=== PATIENT | female | born 1995 | race Caucasian/White ===

== ENCOUNTER 2021-06-12 09:00 | Inpatient (IN) | payer OTHER ==
[~2021-06-12] VITALS: Ht 177.8 cm; Wt 93.4 kg
[~2021-06-12 09:00] MED LIST: OMEPRAZOLE20 MG PO; ONDANSETRON ODT8 MG PO; REGLAN10 MG PO
--- NOTE | 2021-06-12 09:45 | NUR ---
COVID SWAB COLLECTED SENT TO IN-HOUSE LAB
--- NOTE | 2021-06-12 14:44 | PR ---
[facility] [address] [facility] [place], [place] [address] Signed Progress Notes IP Datetime Report Generated by CPN: 06/12/2021 14:44 PROGRESS NOTES: [id number] Impression: Reassuring Heart Rate Procedures: Artificial ROM VITAL SIGNS: [id number] Vital Signs: Reviewed EXAM: [id number] Dilatation: 3.0 Effacement: 80 Station: -3 Contractions: rare, irregular MEMBRANES: [id number] Comments: EIOL: s/p cytotec x 1 AROM - moderate clear fluid Recheck in 2 hours unless contractions become regular and more painful prior FETUS A: [id number] FHR Baseline: 135 Variability: Moderate 6-25bpm Accelerations: 15X15 Decelerations: None FHR Category: Category I Comments on Fetus A: No evidence of acidemia FETUS B: [id number] Signing Physician: Alex Valentin DO Copies: ~ *Electronically Signed* 06/12/21 1444 ALEX VALENTIN DO PATIENT NAME: VADIM MATAMOROS PROGRESS NOTE DATE OF : [birth year] PHYSICIAN: ALEX VALENTIN DO [facility] #: [id number] REPORT IS CONFIDENTIAL AND NOT TO BE RELEASED WITHOUT AUTHORIZATION
--- NOTE | 2021-06-13 08:44 | PR ---
[facility] [address] [facility] [place], [place] [address] Signed PP Progress Notes Datetime Report Generated by CPN: 06/13/2021 08:44 SUBJECTIVE: [id number] Pain: Within Normal Limits Nausea/Vomiting: Denies Vital Signs: [id number] Vital Signs: Reviewed; Within Normal Limits Cardiovascular: Normal Respiratory: Normal Abdomen/Uterus: Normal Lochia: Normal Extremities: Normal Progress: Normal IMPRESSION/PLAN/PROCEDURES: [id number] Impression: Normal Progression Plan: Continue Present Management Progress Notes: PPD#1 s/p , second degree perineal laceration -progressing well , pain well-controlled with motrin/ tylenol -lochia moderate -clifton in place still, anticipate removal and voiding trial -ambulating without difficulty Rh negative, baby blood type A neg Mild anemia, discussed iron supplementation po after bowel movements resume Anticipate DC to home tomorrow (PPD#2) Signing Physician: Alex Valentin DO Copies: ~ *Electronically Signed* 06/13/21 0844 ALEX VALENTIN DO PATIENT NAME: VADIM MATAMOROS PROGRESS NOTE DATE OF : [birth year] PHYSICIAN: ALEX VALENTIN DO RPT #: [id number] REPORT IS CONFIDENTIAL AND NOT TO BE RELEASED WITHOUT AUTHORIZATION
--- NOTE | 2021-06-14 09:34 | PR ---
[facility] [address] [place], [place] [address] Signed PP Progress Notes Datetime Report Generated by CPN: 06/14/2021 09:34 SUBJECTIVE: [id number] Pain: Within Normal Limits Nausea/Vomiting: Denies Flatus: Yes Bowel Movement: Yes Vital Signs: [id number] Vital Signs: Reviewed; Within Normal Limits Cardiovascular: Normal Respiratory: Normal Abdomen/Uterus: Normal Lochia: Normal Breasts: Normal Extremities: Normal Progress: Normal Exam Comments: NAD sitting in bed holding baby RRR No dyspnea/ retractions Abd SNTND, FFBU Ext: 1+ BLLE pitting edema, Neg Tata's BL IMPRESSION/PLAN/PROCEDURES: [id number] Impression: Normal Progression Plan: Continue Present Management; Discharge Progress Notes: PPD#2 s/p -Rh negative: baby also Rh negative -Acute blood loss anemia: Rx for oral iron provided, discussed, asymptomatic -Undecided re: method of contraception -2nd degree pernial laceration Anticipate DC to home today Outpatient follow-up: 2 weeks telemedicine, 6 weeks in office (sooner if needed) Signing Physician: Alex Valentin DO Copies: ~ *Electronically Signed* 06/14/2134 ALEX VALENTIN DO PATIENT NAME: VADIM MATAMOROS PROGRESS NOTE DATE OF : [birth year] PHYSICIAN: ALEX VALENTIN DO RPT #: [id number] REPORT IS CONFIDENTIAL AND NOT TO BE RELEASED WITHOUT AUTHORIZATION
== END 2021-06-14 12:00 | disposition home or self-care (01) | DRG 806 ==
LOC: FBC 09:00
PROVIDERS: ADMIT Obstetrics & Gynecology; ATTEND Obstetrics & Gynecology
PROC: 10E0XZZ Delivery of Products of Conception, External Approach (ICD-10-PCS; principal; 2021-06-12)
PROC: 10907ZC Drainage of Amniotic Fluid, Therapeutic from Products of Conception, Via Natural or Artificial Opening (ICD-10-PCS; 2021-06-12)
DX: O70.1 Second degree perineal laceration during delivery (principal); D62 Acute posthemorrhagic anemia; Z37.0 Single live birth; Z3A.39 39 weeks gestation of pregnancy; O90.81 Anemia of the puerperium
CPT/HCPCS: 01960; 36415; 83030; 85027; 86850; 86900; 86901; A9270; C9803; J2590; J2790; J2795; U0003

== ENCOUNTER 2024-12-28 08:34 | Inpatient (IN) | payer OTHER ==
[~2024-12-28] VITALS: Ht 177.8 cm; Wt 95.3 kg
[2024-12-28] MEDS ORDERED: LIDOCAINE HCL 1% 30 ML SDV INJ PRN (09:00)
[2024-12-28] MEDS ORDERED: OXYTOCIN/0.9 % SODIUM CHLORIDE 30 UNITS/500 ML BAG IV SCH (09:00)
[2024-12-28] MEDS ORDERED: LIDOCAINE 2% VISCOUS 6 ML SYR TOP ONE ×4 (09:00→11:00)
[2024-12-28] MEDS ORDERED: fentaNYL citrate 100 MCG/2 ML VIAL IV PRN (09:00)
[2024-12-28] MEDS ORDERED: LACTATED RINGER'S 1,000 ML IV PRN (09:00)
[2024-12-28] MEDS ORDERED: TERBUTALINE SULFATE 1 MG/ML AMP SUB-Q PRN (09:00)
[2024-12-28] MEDS ORDERED: CALCIUM CARBONATE 500 MG CHEW PO PRN ×2 (09:00→11:00)
[2024-12-28] MEDS ORDERED: MAGNESIUM HYDROXIDE/AL HYDROX 30 ML CUP PO PRN ×2 (09:00→11:00)
[2024-12-28] MEDS ORDERED: LACTATED RINGER'S 1,000 ML IV SCH (09:00)
[2024-12-28 09:03] LABS: MCH 28.7 PG (25.6-32.2); MCHC 34.1 g/dL (32.2-35.5); MCV 84.1 fL (79.4-94.8); RBC 3.9 M/uL (3.93-5.22)
[2024-12-28] MEDS ORDERED: fentaNYL citrate 100 MCG/2 ML VIAL ONE (09:24)
[2024-12-28 09:26] LABS: AMPHETAMINES, URINE NEGATIVE (NEGATIVE); BARBITURATES, URINE NEGATIVE (NEGATIVE); BENZODIAZEPINE, URINE NEGATIVE (NEGATIVE); CANNABINOID, URINE NEGATIVE (NEGATIVE); COCAINE, URINE NEGATIVE (NEGATIVE); ECSTASY, URINE NEGATIVE (NEGATIVE); FENTANYL, URINE NEGATIVE (NEGATIVE); METHADONE, URINE NEGATIVE (NEGATIVE); OPIATES, URINE NEGATIVE (NEGATIVE); OXYCODONE, URINE NEGATIVE (NEGATIVE); PHENCYCLIDINE, URINE NEGATIVE (NEGATIVE)
[2024-12-28 09:30] VITALS: BP 126/58
[2024-12-28] MEDS ORDERED: ROPIVACAINE 0.2% 200 ML BAG EPIDURAL SCH (09:30)
[2024-12-28] MEDS ORDERED: LACTATED RINGER'S 2,000 ML IV ONE (09:30)
[2024-12-28] MEDS ORDERED: ePHEDrine sulfate 5 MG/ML SYRINGE IV PRN (09:30)
[2024-12-28] MEDS ORDERED: LACTATED RINGER'S 500 ML IV PRN (09:30)
[2024-12-28 09:39] LABS: ABO O; ANTIBODY SCREEN NEGATIVE; RH NEGATIVE
[2024-12-28] MEDS ORDERED: BENZOCAINE 60 ML AEROSOL TOP PRN (11:00)
[2024-12-28] MEDS ORDERED: ACETAMINOPHEN 325 MG TAB PO PRN (11:00)
[2024-12-28] MEDS ORDERED: OXYTOCIN/0.9 % SODIUM CHLORIDE 500 ML IV SCH (11:00)
[2024-12-28] MEDS ORDERED: WITCH HAZEL/GLYCERIN 1 EA PAD TOP PRN (11:00)
[2024-12-28] MEDS ORDERED: HYDROCORTISONE ACETATE 25 MG SUPP PR PRN (11:00)
[2024-12-28] MEDS ORDERED: MAGNESIUM HYDROXIDE 30 ML UDC PO PRN (11:00)
[2024-12-28] MEDS ORDERED: IBUPROFEN 600 MG TAB PO PRN (11:00)
[2024-12-28] MEDS ORDERED: SENNOSIDES/DOCUSATE 1 EA TAB PO SCH (21:00)
== END 2024-12-29 11:50 | disposition home or self-care (01) | DRG 807 ==
LOC: FBCO 08:34 → FBC 08:40
PROVIDERS: ADMIT Advanced Practice Midwife; ATTEND Advanced Practice Midwife
PROC: 10E0XZZ Delivery of Products of Conception, External Approach (ICD-10-PCS; principal; 2024-12-28)
PROC: 0KQM0ZZ Repair Perineum Muscle, Open Approach (ICD-10-PCS; 2024-12-28)
PROC: 10907ZC Drainage of Amniotic Fluid, Therapeutic from Products of Conception, Via Natural or Artificial Opening (ICD-10-PCS; 2024-12-28)
PROC: 3E0R3BZ Introduction of Anesthetic Agent into Spinal Canal, Percutaneous Approach (ICD-10-PCS; 2024-12-28)
PROC: 00HU33Z Insertion of Infusion Device into Spinal Canal, Percutaneous Approach (ICD-10-PCS; 2024-12-28)
DX: O48.0 Post-term pregnancy (principal); Z37.0 Single live birth; Z3A.40 40 weeks gestation of pregnancy; O99.62 Diseases of the digestive system complicating childbirth; O77.0 Labor and delivery complicated by meconium in amniotic fluid; O70.1 Second degree perineal laceration during delivery; K21.9 Gastro-esophageal reflux disease without esophagitis
CPT/HCPCS: 01960; 36415; 80307; 85027; 86850; 86900; 86901; A9270; J7121